=== PATIENT | female | born 1985 ===

== ENCOUNTER 2017-04-05 16:48 | Emergency (ER) | payer SELFPAY ==
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
[2017-04-05] MEDS ORDERED: Ondansetron ODT TAB* 4 MG PO ONE (19:36)
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
[2017-04-05 19:41] VITALS: BP 113/70
== END 2017-04-05 20:11 | disposition home or self-care (01) ==
LOC: ED 16:48
DX: M54.2 Cervicalgia (principal); V43.62XA Car passenger injured in collision with other type car in traffic accident, initial encounter; Y92.9 Unspecified place or not applicable
CPT/HCPCS: 72020; 99282; A9270-GY